=== PATIENT | female | born 1980 | race Two or more races ===

== ENCOUNTER → 2017-03-07 16:52 | Outpatient (CLI) | payer OTHER | END | disposition home or self-care (01) | LOC: RAD 16:52 | DX: S33.8XXA Sprain of other parts of lumbar spine and pelvis, initial encounter (principal) ==

== ENCOUNTER 2017-09-05 10:46 | Outpatient (CLI) | payer OTHER | END 2017-09-05 10:52 | disposition home or self-care (01) | LOC: RAD 10:46 | DX: J45.52 Severe persistent asthma with status asthmaticus (principal); J01.10 Acute frontal sinusitis, unspecified; J45.51 Severe persistent asthma with (acute) exacerbation ==

== ENCOUNTER 2017-12-08 10:35 | Outpatient (CLI) | payer OTHER | END 2017-12-08 10:44 | disposition home or self-care (01) | LOC: MAMO-SONO 10:35 | DX: Z12.31 Encounter for screening mammogram for malignant neoplasm of breast (principal); N60.11 Diffuse cystic mastopathy of right breast; N64.4 Mastodynia ==